=== PATIENT | male | born 2000 | race Caucasian/White ===

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

== ENCOUNTER 2022-12-27 08:10 | Emergency (ER) | payer OTHER ==
[2022-12-27] MEDS ORDERED: TETRACAINE 0.5% HCL 0.6ML DROPPER.BOTTLE OD ONE (08:15)
[2022-12-27] MEDS ORDERED: FLUORESCEIN NA 1 EA STRIP OD ONE (08:15)
[2022-12-27] MEDS ORDERED: FLUORESCEIN NA 1 EA STRIP ONE (08:29)
[2022-12-27] MEDS ORDERED: TETRACAINE 0.5% OPHTH SOLN 2 ML BOTTLE ONE (08:29)
[2022-12-27 08:54] VITALS: BP 102/69; PULSE 71; RESP 20; TEMP 98.6; BMI 26.7
== END 2022-12-27 09:05 | disposition home or self-care (01) ==
LOC: FER 08:10
DX: S05.01XA Injury of conjunctiva and corneal abrasion without foreign body, right eye, initial encounter (principal); X58.XXXA Exposure to other specified factors, initial encounter; Y93.I9 Activity, other involving external motion; Y92.838 Other recreation area as the place of occurrence of the external cause
CPT/HCPCS: 99283-25

== ENCOUNTER 2023-04-28 20:22 | Emergency (ER) | payer OTHER ==
[2023-04-28 20:37] VITALS: BP 120/77; PULSE 100; RESP 16; TEMP 98.2; BMI 27.4
== END 2023-04-28 21:29 | disposition home or self-care (01) ==
LOC: FER 20:22
DX: S62.622A Displaced fracture of middle phalanx of right middle finger, initial encounter for closed fracture (principal); W50.2XXA Accidental twist by another person, initial encounter
CPT/HCPCS: 73140-TC-RT-FY; 99283-25